=== PATIENT | female | born 1975 | race Caucasian/White ===

== ENCOUNTER 2022-07-01 09:49 | Emergency (ER) | payer SELFPAY ==
[2022-07-01 10:02] VITALS: BMI 29.0
[2022-07-01 10:05] VITALS: BP 117/71; PULSE 70; RESP 18; TEMP 36.2; O2SAT 100
--- NOTE | 2022-07-01 10:43 | ED_ITS ---
HPI - Extremity Problem General: Chief complaint: Extremity Injury, Lower Stated complaint: Right hip pain Time Seen by Provider: 07/01/22 10:20 Source: patient Mode of arrival: ambulatory History of Present Illness: 47-year-old female presents to the emergency room complaining of right hip pain radiating down the anterior part of her leg. No fall no triggering episode or injury. No trauma. She does not have any fecal incontinence or urinary retention. She has intermittently had back pain in the past pain is better when she lays down worse when she bears weight. MD Complaint: extremity pain Onset (ago): day(s) (1) Pain Consistency: constant Location: right Quality: burning and sharp Radiation: distal Relieving factors: other (Supine) Exacerbating factors: weight bearing and walking Associated symptoms: Deny arthralgias, chest pain, fever(s), myalgias, rash or short of breath Review of Systems Const: Denies: fever(s), chills, fatigue or malaise ENMT: Denies: throat pain, ear or mastoid pain, nasal discharge or nasal congestion Card: Denies: chest pain, palpitations, irregular heart rhythm, edema or swelling of feet/ankles Resp: Denies: dyspnea, productive cough or non-productive cough GI: Denies: abdominal pain, nausea, vomiting, hematemesis, coffee ground emesis, diarrhea, constipation, bloating, hematochezia or melena : Denies: flank pain, difficulty voiding, dysuria, urinary frequency or urinary urgency Skin/Breast: Denies: rash [facility] ED PFSH: Medical History (Updated 07/02/22 @ 13:52 by Yrn Tierney DO) No pertinent past medical history Surgical History (Updated 07/02/22 @ 13:52 by Yrn Tierney DO) No pertinent past surgical history Female Reproductive History: Date of last menstrual period: 06/20/22 Physical Exam Const: COMMON NORMALS: no acute distress GENERAL APPEARANCE: cooperative and comfortable ORIENTATION/CONSCIOUSNESS: Yes awake, Yes oriented to person, Yes oriented to place and Yes oriented to time HENMT: COMMON NORMALS: normocephalic, atraumatic and hearing grossly normal bilaterally HEAD & SCALP: normocephalic and atraumatic Resp: COMMON NORMALS: normal respiratory effort, No retractions, No use of accessory muscles and clear to auscultation bilaterally AUSCULTATION: clear to auscultation bilaterally Cardio: COMMON NORMALS: regular rate, regular rhythm and No murmurs present (Cardio) RATE: regular rate RHYTHM: regular rhythm GI: COMMON NORMALS: Soft to palpation and No hepatosplenomegaly present AUSCULTATION: Yes normoactive bowel sounds PALPATION: Yes Soft to palpation, No Tenderness to palpation present (GI), No Guarding due to palpation present (GI) and Yes No hepatosplenomegaly present Extremity: COMMON NORMALS: normal to inspection, capillary refill normal, no clubbing, cyanosis or edema, no calf tenderness and no pedal edema Neuro: SENSORIUM/ORIENTATION: Yes oriented to person, Yes oriented to place and Yes oriented to time MOTOR EXAM: 5/5 motor strength present throughout (Lower extremities) DEEP TENDON REFLEXES: Right patellar reflex intensity grade: 2+, Left patellar reflex intensity grade: 2+, Right ankle reflex intensity grade: 1+ and Left ankle reflex intensity grade: 1+ OTHER: Straight leg raise on the right leg Skin: COMMON NORMALS: no rashes or lesions noted GENERAL SKIN EXAM: no rashes or lesions noted Course Vital Signs: Vital signs: Vital Signs Temperature 97.2 F L 07/01/22 10:05 Pulse Rate 70 07/01/22 10:05 Respiratory Rate 14 07/01/22 10:53 Blood Pressure 117/71 07/01/22 10:05 Pulse Oximetry 96 07/01/22 10:53 Oxygen Delivery Me thod 07/01/22 10:05 MDM - Extremity (Nontraumatic) Medical Decision Making Patient has radicular symptoms in the right leg. She is given steroids anti- inflammatories and muscle relaxer here discharged home on same steroid taper and pain medications and diclofenac. Follow-up with primary care doctor if not improving with conservative measures and may need further evaluation Discharge Plan Discharge Patient Disposition: Home Clinical Impression: Sciatica Condition: Stable Prescriptions: New hydrocodone-acetaminophen 5-325 mg tablet 1 tab PO Q6H PRN (Reason: pain) Qty: 10 0RF prednisone 20 mg tablet 20 mg PO TID Qty: 15 0RF Rx Instructions: 1 p.o. 3 times daily x3 days, 1 p.o. twice daily x2 days, 1 p.o. 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
[2022-07-01 10:53] VITALS: RESP 14; O2SAT 96
[2022-07-01] MEDS: ketorolac 30 mg/mL INJ 60 MG IM (10:53)
[2022-07-01] MEDS: orphenadrine 30 mg/mL Inj 2 mL 60 MG IM (10:53)
[2022-07-01] MEDS: morphine 4 mg/mL SDV 1 mL IM (10:53)
== END 2022-07-01 11:03 | disposition home or self-care (01) ==
PROVIDERS: Emergency Provider Family Medicine
DX: M54.31 Sciatica, right side (principal)
CPT/HCPCS: 96372; 99284; J1885; J2270; J2360; J2930

== ENCOUNTER 2023-12-16 09:49 | Emergency (ER) | payer SELFPAY ==
[2023-12-16 09:53] VITALS: BP 121/82; PULSE 88; RESP 16; TEMP 37.1; O2SAT 100; BMI 29.7
--- NOTE | 2023-12-16 10:43 | W.ED.BACK ---
HPI - Back Pain/Injury General: Chief Complaint: Back Pain/Injury Stated Complaint: back pain Time Seen by Provider: 12/16/23 10:22 Source: patient and family Mode of arrival: ambulatory Limitations: no limitations History of Present Illness: This patient presents to the emergency department because of low back pain. She states she was working cleaning up around the house and spends considerable time bending over picking up small toys etc. that but nothing heavy. She states when she eventually completed that and raise back up she felt pain in her lower back and has continued to be painful in that region. She states she is not fallen. She states the pain does not radiate it is remained in her lower back. She has had no weakness of her lower extremities. She has not had no numbness. No perineal numbness. No loss of bowel or bladder control. She states she occasionally has back pain. She has had no history of falls or serious back injury. No back surgeries. She has not had fevers, is not immunocompromise, does not use IV drugs. He states the pain is uncomfortable she has tried nonsteroidal patch at home. MD elicited complaint: back pain Location: lumbar spine Radiation: none Exacerbating factors: movement Context: bending Associated symptoms: Reports no associated symptoms; Deny abdominal pain, chills, dysuria, fever(s), nausea, syncope or vomiting Review of Systems Const: Denies: fever(s) or chills ENMT: Denies: throat pain or odynophagia Card: Denies: chest pain, palpitations, syncope or pre-syncope Resp: Denies: productive cough or non-productive cough GI: Denies: abdominal pain, nausea or vomiting : Denies: flank pain, difficulty voiding, dysuria or urinary frequency Musc: Reports: back pain Skin/Breast: Denies: rash Neuro: Denies: numbness in extremities or weakness in extremities PFS ED PFSH: Medical History No pertinent past medical history Surgical History No pertinent past surgical history Female Reproductive History: Date of last menstrual period: 12/08/23 Physical Exam Narrative: EXAM NARRATIVE: Patient is alert answers questions appropriately. She moves rather stiffly but has ability to move unaided. Const: COMMON NORMALS: no acute distress, average body habitus, patient oriented x3 and alert GENERAL APPEARANCE: cooperative HENMT: COMMON NORMALS: normocephalic and Normal nasal mucous membranes and turbinates present HEAD & SCALP: normocephalic NOSE: Normal nasal mucous membranes and turbinates present Eye: COMMON NORMALS: Equal, round and reactive pupils present and EOMs intact bilaterally PUPIL: Yes Equal, round and reactive pupils present Neck/C-Spine: COMMON NORMALS: full ROM and no lymphadenopathy CERVICAL SPINE: Yes cervical ROM normal Resp: COMMON NORMALS: normal respiratory effort and No use of accessory muscles EFFORT & INSPECTION: Yes able to speak in complete sentences Cardio: COMMON NORMALS: regular rate RATE: regular rate GI: COMMON NORMALS: Normal to inspection, nondistended, normoactive bowel sounds present and Soft to palpation PALPATION: Yes Soft to palpation Back/Pelvis: THORACIC SPINE/UPPER BACK: Yes normal to inspection, Yes thoracic ROM normal, No paraspinal muscle tenderness and No paraspinal muscle spasm LUMBAR SPINE/LOWER BACK: Yes pain with ROM (Flexion past approximately 15 degrees, extension to normal anatomic positio), Yes paraspinal muscle tenderness and Yes paraspinal muscle spasm PELVIS: Yes no pain with anterior-posterior compression and Yes no pain with lateral compression SACROILIAC JOINTS: Yes SI joints normal OTHER: She has intact motor function to both lower extremities. There is no sensory deficits. She does have restriction to straight leg raising by spasm and subjective discomfort. BACK IMAGE (FEMALE): 1. Area of tenderness no skin changes ecchymosis etc. Extremity: COMMON NORMALS: normal to inspection, full ROM, no calf tenderness and no pedal edema Neuro: COMMON NORMALS: patient oriented x3, moves all extremities, no focal motor deficits, no sensory deficits noted and deep tendon reflexes 2+ bilaterally SENSORIUM/ORIENTATION: Yes alert Psych: COMMON NORMALS: mental status grossly normal Skin: COMMON NORMALS: no rashes or lesions noted GENERAL SKIN EXAM: no rashes or lesions noted Course Vital Signs: Vital signs: Vital Signs Temperature 98.7 F 12/16/23 11:35 Pulse Rate 92 12/16/23 11:35 Respiratory Rate 17 12/16/23 11:35 Blood Pressure 123/81 12/16/23 11:35 Pulse Oximetry 100 12/16/23 11:35 Oxygen Delivery Me thod Room Air 12/16/23 09:53 MDM - Back Pain/Injury Medical Decision Making Patient with lumbar low back pain of acute onset with bending. No trauma or falls. No red flag symptoms or contributing history that would suggest a worrisome etiology of low back pain. Clinical examination revealed paravertebral spasm and tenderness over the bilateral regions of the lumbar spine. She had restriction to movement as well as subjective worsening symptoms with straight leg raising but no neurologic deficits in terms of any motor or sensory loss. Consistent with acute low back strain with associated spasm likely due to prolonged positioning and twisting and turning in a bent position. No indication for imaging given the lack of trauma, the short duration of symptoms and the lack of clinical findings. I discussed expected course plan of care and most specifically reviewed red flag symptoms to prompt return to the emergency department. Both she and her son expressed understanding. No radiology studies performed this visit Discharge Plan Discharge Patient Disposition: Home Clinical Impression: Low back strain Qualifiers: Encounter type: initial encounter Qualified Code(s): S39.012A - Strain of muscle, fascia and tendon of lower back, initial encounter Condition: Stable Prescriptions: New Valium 5 mg tablet 5 mg PO DAILY PRN (Reason: muscle spasm) Qty: 5 0RF No Action hydrocodone-acetaminophen 5-325 mg tablet 1 tab PO Q6H PRN (Reason: pain) Qty: 10 0RF prednisone 20 mg tablet 20 mg PO TID Qty: 15 0RF Rx Instructions: 1 p.o. 3 times daily x3 days, 1 p.o. twice daily x2 days, 1 p.o. daily x2 days diclofenac sodium 75 mg tablet,delayed release (DR/EC) 75 mg PO Q12H PRN (Reason: pain) Qty: 20 0RF tizanidine 4 mg tablet 4 mg PO Q8H PRN (Reason: muscle spasticity) Qty: 20 0RF Discharge Orders: Discharge ED (Routine); Ordered 12/16/23 Ordered By: David Goddard Discharge Diet: Usual diet Discharge Activity: Increase activity as tolerated Patient Instructions: Opioid Safety, Pain Management Activity Restrictions/Additional Instructions: As we discussed while you are in the emergency department you have findings which suggest a simple low back strain and not a serious cause of your symptoms. We have prescribed a muscle relaxant to use at night for the next several nights to help with your muscle spasm. We also recommend buying Lidoderm or lidocaine patches and apply them to your skin of your low back once daily for the next 5 days to help with your symptoms. You may also use ibuprofen or Aleve to help with your pain. We also recommend using an ice pack to the low back for 10 to 15 minutes 3-4 times daily to help with your pain. If your pain persists for more than 3 to 4 days or you develop weakness numbness difficulty controlling her bowels and bladder or any other concerning symptoms return to the emergency department immediately for reevaluation. 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
[2023-12-16] MEDS: diazePAM 5 mg Tablet PO (11:07)
[2023-12-16] MEDS: lidocaine 5% Patch 1 PATCH TOPICAL (11:07)
[2023-12-16 11:35] VITALS: BP 123/81; PULSE 92; RESP 17; TEMP 37.1; O2SAT 100
== END 2023-12-16 11:36 | disposition home or self-care (01) ==
PROVIDERS: Emergency Provider Emergency Medicine
DX: S39.012A Strain of muscle, fascia and tendon of lower back, initial encounter (principal); X50.1XXA Overexertion from prolonged static or awkward postures, initial encounter
CPT/HCPCS: 99283

== ENCOUNTER 2025-05-08 09:18 | Emergency (ER) | payer SELFPAY ==
[2025-05-08 09:26] VITALS: BP 135/77; PULSE 74; RESP 16; TEMP 36.8; O2SAT 99; BMI 29.7
[2025-05-08 10:21] LABS: Hematocrit 48.8 % (36-47); Hemoglobin 16.30 g/dL (11.27-16.99); Mean Corpuscular HGB Conc 33.4 g/dL (30-55); Mean Corpuscular Hemoglobin 30.4 pg (27-33); Mean Corpuscular Volume 91.0 fl (85-98); Nucleated Red Blood Cells % 0 %; Platelet Count 167 10^3/cmm (157-399); Red Blood Count 5.36 10^6/uL (3.85-5.65); White Blood Count 11.59 10^3/uL (3.29-11.43)
[2025-05-08 10:21] LABS: Glucose Urine UA Negative (Normal); Nitrate Urine Negative (Negative); Specific Gravity, Urine 1.026 (1.005-1.030)
[2025-05-08 10:26] LABS: Add Urine Microscopic? YES
--- NOTE | 2025-05-08 10:28 | ED_ITS ---
HPI - Abdominal Pain 2 General: Chief Complaint: Abdominal Pain Stated Complaint: ABD pain Time Seen by Provider: 05/08/25 09:20 History of Present Illness: 50-year-old female presents emergency ro om complaining of lower abdominal pain for last several days suprapubic to the right lower quadrant region. Has been very nauseous no vomiting no hematochezia or melena no fever sweats or chills no dysuria urgency or frequency or hematuria Associated Symptoms: Denies chills, dysuria and fever(s) Related Data Previous Rx's ?Medication ?Instructions ?Recorded diclofenac sodium 75 mg 75 mg PO Q12H PRN pain #20 t abs 07/01/22 tablet,delayed release hydrocodone 5 mg-acetaminophen 325 1 tab PO Q6H PRN pa in #10 tabs 07/01/22 mg tablet prednisone 20 mg tablet 20 mg PO TID #15 tabs tizanidine 4 mg tablet 4 mg PO Q8H PRN muscle spast icity 07/01/22 #20 tabs diazepam 5 mg tablet (Valium) 5 mg PO DAILY PRN muscle spasm #5 12/16/23 tabs amoxicillin 875 mg-potassium 1 tab PO BID #14 tabs clavulanate 125 mg tablet hydrocodone 5 mg-acetaminophen 325 1 tab PO Q6H PRN pa in #10 tabs 05/08/25 mg tablet promethazine 25 mg tablet 25 mg PO Q6H PRN nausea and 05/08/25 vomiting #20 tabs Allergies Allergy/AdvReac Type Severity Reaction Status Date / Time Latex, Natural Rubber Allergy ALGY-Alvaroiste Verified 12/16/23 09:55 r Review of Systems 2 Const: Denies: fever(s) or chills Card: Denies: chest pain Resp: Denies: dyspnea GI: Denies: abdominal pain : Denies: dysuria, urinary frequency or urinary urgency Musc: Denies: neck pain or back pain Skin/Breast: Denies: rash PFSH ED 2 PFSH: Medical History No pertinent past medical history Surgical History No pertinent past surgical history Physical Exam 2 Const: GENERAL APPEARANCE: cooperative ORIENTATION/CONSCIOUSNESS: Yes awake, Yes oriented to person, Yes oriented to place and Yes oriented to time HENMT: COMMON NORMALS: normocephalic, atraumatic and hearing grossly normal bilaterally HEAD & SCALP: normocephalic and atraumatic Resp: COMMON NORMALS: normal respiratory effort, No retractions, No use of accessory muscles and clear to auscultation bilaterally AUSCULTATION: clear to auscultation bilaterally Cardio: COMMON NORMALS: regular rate, regular rhythm and No murmurs present (Cardio) RATE: regular rate RHYTHM: regular rhythm GI: COMMON NORMALS: Soft to palpation and No hepatosplenomegaly present A USCULTATION: Yes normoactive bowel sounds PALPATION: Yes Soft to palpation, No Tenderness to palpation present (GI), No Guarding due to palpation present (GI) and Yes No hepatosplenomegaly present Extremity: COMMON NORMALS: normal to inspection, capillary refill normal, no clubbing, cyanosis or edema, no calf tenderness and no pedal edema Neuro: SENSORIUM/ORIENTATION: Yes oriented to person, Yes oriented to place and Yes oriented to time Skin: COMMON NORMALS: no rashes or lesions noted GENERAL SKIN EXAM: no rashes or lesions noted Course 2 Vital Signs: Vital signs: Vital Signs Temperature 98.2 F 05/08/25 09:26 Pulse Rate 75 05/08/25 12:08 Respiratory Rate 16 05/08/25 09:26 Blood Pressure 108/69 05/08/25 12:08 Pulse Oximetry 100 05/08/25 12:08 Oxygen Delivery Me thod Room Air 05/08/25 09:26 MDM - Abdominal Pain Medical Decision Making CT shows acute diverticulitis mild leukocytosis. Discharge patient home on Augmentin 875 twice daily for 6 7 days also discharged home with promethazine and hydrocodone for pain follow-up with primary care should have a colonoscopy at sometime in the future. Medical Records I reviewed the patient's medical records. Lab Data I reviewed the patient's lab results. 05/08/25 10:07 05/08/25 10:07 Labs/Radiology: Radiology Impressions Abdomen/Pelvis CT 05/08/25 10:32 IMPRESSION: 1. Extensive sigmoid and colonic diverticulosis. Inflammatory stranding and edema with a small amount of fluid in the LEFT pericolic gutter extending into the sigmoid colon compatible with acute diverticulitis. 2. No drainable abscess or fluid collection. 3. Evidence of gastritis and duodenitis. 4. Normal retrocecal appendix 5. No other acute findings. 6. Notified Yrn Tierney DO at 05/08/2025 11:56 AM. Laboratory Results WBC 11.59 10^3/uL (3.29-11.43) H 05/08/25 10:07 RBC 5.36 10^6/uL (3.85-5.65) 05/08/25 10:07 Hgb 16.30 g/dL (11.27-16.99) 05/08/25 10:07 Hct 48.8 % (36-47) H 05/08/25 10:07 MCV 91.0 fl (85-98) 05/08/25 10:07 MCH 30.4 pg (27-33) 05/08/25 10:07 MCHC 33.4 g/dL (30-55) 05/08/25 10:07 RDW 13.4 % (12.1-15.1) 05/08/25 10:07 Plt Count 167 10^3/cmm (157-399) 05/08/25 10:07 MPV 12.8 fL (7.4-10.4) H 05/08/25 10:07 Neut % (Auto) 73.1 % 05/08/25 10:07 Lymph % (Auto) 15.1 % 05/08/25 10:07 [place] % (Auto) 8.1 % 05/08/25 10:07 Eos % (Auto) 3.1 % 05/08/25 10:07 Baso % (Auto) 0.3 % 05/08/25 10:07 Neut # (Auto) 8.46 10^3/uL (1.8-7.7) H 05/08/25 10:07 Lymph # (Auto) 1.8 10^3/uL (0.8-4.8) 05/08/25 10:07 [place] # (Auto) 0.9 10^3/uL (0.2-0.9) 05/08/25 10:07 Eos # (Auto) 0.4 10^3/uL (0.0-0.8) 05/08/25 10:07 Baso # (Auto) 0.0 10^3/uL (0.0-0.1) 05/08/25 10:07 Nucleated RBC % (auto) 0 % 05/08/25 10:07 Nucleated RBCs # 0.0 /100WBC 05/08/25 10:07 Sodium 136 mmol/L (136-145) 05/08/25 10:07 Potassium 3.8 mmol/L (3.5-5.1) 05/08/25 10:07 Chloride 96 mmol/L (98-107) L 05/08/25 10:07 Carbon Dioxide 27 mmol/L (22-29) 05/08/25 10:07 Anion Gap 16.8 (5-19) 05/08/25 10:07 BUN 16 mg/dL (6-20) 05/08/25 10:07 Creatinine 0.8 mg/dL (0.5-0.9) 05/08/25 10:07 GFR Calculation 76.2 mL/min (90-130) L 05/08/25 10:07 Glucose 98 mg/dL (65-115) 05/08/25 10:07 Calculated Osmolality 283 mOsm/kg (285-295) L 05/08/25 10:07 Calcium 9.6 mg/dL (8.5-10.5) 05/08/25 10:07 Total Bilirubin 0.5 mg/dL (0.15-1.2) 05/08/25 10:07 AST 18 U/L (0-32) 05/08/25 10:07 ALT 17 U/L (0-33) 05/08/25 10:07 Alkaline Phosphatase 100 U/L (35-105) 05/08/25 10:07 Total Protein 8.2 g/dL (6.6-8.7) 05/08/25 10:07 Albumin 4.2 g/dL (3.5-5.2) 05/08/25 10:07 Globulin 4.0 g/dL (1.3-4.6) 05/08/25 10:07 Lipase 30 U/L (13-60) 05/08/25 10:07 HCG, Qual Negative (Negative) 05/08/25 10:07 Urine Color Dark yellow (Yellow) A 05/08/25 10:01 Urine Appearance Clear (CLEAR) 05/08/25 10:01 Urine pH 5.5 (5-7) 05/08/25 10:01 Ur Specific [place] 1.026 (1.005-1.030) 05/08/25 10:01 Urine Protein 1+ (Negative) A 05/08/25 10:01 Urine Glucose (UA) Negative (Normal) 05/08/25 10:01 Urine Ketones Trace (Negative) 05/08/25 10:01 Urine Blood Negative (Negative) 05/08/25 10:01 Urine Nitrate Negative (Negative) 05/08/25 10:01 Urine Bilirubin 1+ (Negative) H 05/08/25 10:01 Urine Urobilinogen 1.0 mg/dL (Negative) 05/08/25 10:01 Ur Leukocyte Esterase Trace (Negative) A 05/08/25 10:01 Urine RBC 0-2 /hpf (0-2) 05/08/25 10:01 Urine WBC 0-5 /hpf (0-5) 05/08/25 10:01 Ur Squamous Epith Cells 0-5 /hpf (0-5) 05/08/25 10:01 Amorphous Sediment Not Reportable 05/08/25 10:01 Urine Bacteria 1+ /hpf (NONE) H 05/08/25 10:01 Hyaline Casts 1.21 /lpf 05/08/25 10:01 All radiology interpretation(s) finalized by discharge Discharge Plan Discharge Patient Disposition: Home Clinical Impression: Diverticulitis Condition: Stable Prescriptions: New amoxicillin-pot clavulanate 875-125 mg tablet 1 tab PO BID Qty: 14 0RF hydrocodone-acetaminophen 5-325 mg tablet 1 tab PO Q6H PRN (Reason: pain) Qty: 10 0RF promethazine 25 mg tablet 25 mg PO Q6H PRN (Reason: nausea and vomiting) Qty: 20 0RF No Action hydrocodone-acetaminophen 5-325 mg tablet 1 tab PO Q6H PRN (Reason: pain) Qty: 10 0RF prednisone 20 mg tablet 20 mg PO TID Qty: 15 0RF Rx Instructions: 1 p.o. 3 times daily x3 days, 1 p.o. twice daily x2 days, 1 p.o. daily x2 days diclofenac sodium 75 mg tablet,delayed release (DR/EC) 75 mg PO Q12H PRN (Reason: pain) Qty: 20 0RF tizanidine 4 mg tablet 4 mg PO Q8H PRN (Reason: muscle spasticity) Qty: 20 0RF Valium 5 mg tablet 5 mg PO DAILY PRN (Reason: muscle spasm) Qty: 5 0RF Discharge Orders: Discharge ED (Routine); Ordered 05/08/25 Ordered By: Yrn Tierney Discharge Diet: As Directed Discharge Activity: Increase activity as tolerated Patient Instructions: Diverticulitis (ED), Opioid Safety, Pain Management, Patient Portal & Leena Instructions Activity Restrictions/Additional Instructions: [facility]. It is very important that you follow up as instructed or that you return to the Emergency Department should you have concerns or if your condition changes or worsens in any way. You were seen in the emergency room with complaints of abdominal pain CT shows you have diverticulitis. Recommend clear liquid diet for the next 24 to 48 hours and advance as tolerated. Started on oral antibiotics 1 pill twice a day for 7 days also given pain medications and nausea medication to use as needed Print Language: Tongan Coding Level of Care Code ED Hand Drawer In for Pete Matias
[2025-05-08 10:31] LABS: HCG, Serum Qual Negative (Negative)
--- NOTE | 2025-05-08 10:32 | CT_ITS ---
WS: [id number] CT ABDOMEN PELVIS TECHNIQUE: Contrast-enhanced CT of the abdomen and pelvis with coronal and sagittal reformatted images. CLINICAL INFORMATION: abd pain COMPARISON: None. DLP: 689.[address] scans at [facility] use at least one of these dose optimization techniques: automated exposure control; mA and/or kV adjustment per patient size (includes targeted exams where dose is matched to clinical indication); or iterative reconstruction. FINDINGS: Hepatomegaly. Fatty liver. Diffuse thickening of the sigmoid colon with inflammatory stranding and induration in the LEFT lower quadrant and a small mild fluid in the paracolic gutter compatible with acute diverticulitis. Extensive sigmoid and colonic diverticuli. No drainable abscess or fluid collection. Normal retrocecal appendix is decompressed with air in the tip of the appendix. Normal renal parenchymal enhancement. No hydronephrosis. Adrenal glands are normal. Tiny esophageal hiatal hernia. Gastric rugal thickening compatible with gastritis. Normal caliber abdominal aorta. Celiac and SMA are patent. Shotty periaortic lymph nodes. Normal gallbladder. Normal portal vein and splenic vein. Heterogeneous enhancing uterus. Multi follicular ovaries bilaterally. Dominant LEFT follicle measuring 10mm. CT/CT abdomen pelvis w con* [id number] IMPRESSION: 1. Extensive sigmoid and colonic diverticulosis. Inflammatory stranding and ed bianca with a small amount of fluid in the LEFT pericolic gutter extending into th e sigmoid colon compatible with acute diverticulitis. 2. No drainable abscess or fluid collection. 3. Evidence of gastritis and duodenitis. 4. Normal retrocecal appendix 5. No other acute findings. 6. Notified Yrn Tierney DO at 05/08/2025 11:56 AM.
[2025-05-08 10:35] LABS: Alanine Aminotransferase 17 U/L (0-33); Albumin Level 4.2 g/dL (3.5-5.2); Alkaline Phosphatase 100 U/L (35-105); Anion Gap 16.8 (5-19); Aspartate Amino Transferase 18 U/L (0-32); Blood Urea Nitrogen 16 mg/dL (6-20); Calcium 9.6 mg/dL (8.5-10.5); Carbon Dioxide 27 mmol/L (22-29); Chloride 96 mmol/L (98-107); Creatinine Clr Calc Pharmacy 95.9264; Globulin 4.0 g/dL (1.3-4.6); Glucose 98 mg/dL (65-115); Lipase 30 U/L (13-60); Osmolality Calculated 283 mOsm/kg (285-295); Potassium 3.8 mmol/L (3.5-5.1); Sodium 136 mmol/L (136-145); Total Protein 8.2 g/dL (6.6-8.7)
[2025-05-08] MEDS: iohexol 350 mg/mL 500 mL Btl (per mL) IV (10:57)
[2025-05-08 12:08] VITALS: BP 108/69; PULSE 75; O2SAT 100
--- OUTSIDE RECORDS SUMMARY | 2025-05-09 04:06 | XMS_ITS | Clinical Summary ---
Author Organization [facility] Lila Lyons [address] Address [address] [place] [address] Care Team Providers Care Human Resources Admin Name Role Phone Unavailable Primary Care Provider Unavailabl e Allergies Active Allergy Reactions Criticality Noted Date Comments Latex Rash Low 07/03/2012 Medications ibuprofen (MOTRIN) 800 mg Oral TabIndications: Knee pain Take 1 Tab by mouth every 8 hours as needed for Pain. 30 Tab 0 06/04/2009 Active varenicline (CHANTIX) 0.5 (11)-1 (42) mg Oral tablets in a dose pack Take as directed on package. 1 Package 0 07/03/2012 Active oxyCODONE-aceta minophen (PERCOCET) 5-325 mg Oral tablet Take 1 Tab by mouth every 4 hours as needed for Pain. 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 Immunizations Immunization Administration Dates Next Due Dt Dtp Dtap Vaccine 01/06/2005 Family History Medical History Relation Name Comments Hypertension Brother Diabetes Father Hypertension Father Cancer Maternal Grandfather esophag eal Heart Disease Maternal Grandfather Cancer Paternal Grandfather pancrea tic cancer Diabetes Paternal Grandfather Breast Cancer Paternal Grandmother Diabetes Paternal Grandmother Hypertension Sister Relation Name Status Comments Brother Alive Father Alive Maternal Grandfather Alive Maternal Grandmother Alive Mother Alive Paternal Grandfather Paternal Grandmother Alive Sister Alive Son 1 Alive Son 2 Alive Son 3 Alive Social History Tobacco Use Types Packs/Day Years Used Date Smoking Tobacco: Former Cigarettes 0 10/23/1992 - 10/23/2012 Smokeless Tobacco: Never Alcohol Use Standard Drinks/Week Comments Yes 0 (1 standard drink = 0.6 oz pur e alcohol) rare Comments No Sex and Gender Information Value Date Recorded Sex Assigned at Not on file 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 Gender Identity Not on file Sexual Orientation Not on file Occupation Industry Job Start Date Job End Date Not on file Not on file Not on file Not on file Last Filed Vital Signs Vital Sign Reading Time Taken Comments Blood Pressure 116/76 01/03/2013 9:55 AM CDT Pulse 53 11/07/2012 12:25 PM MOCCASIN SEWER Temperature 36.3 C (97.4 F) 11/07/2012 11:25 AM MOCCASIN SEWER Respiratory Rate 18 11/07/2012 12:25 PM MOCCASIN SEWER Oxygen Saturation 93% 11/07/2012 12:25 PM MOCCASIN SEWER Inhaled Oxygen Concentration - - Weight 81.6 kg (180 lb) 01/03/2013 9:55 AM CDT Height 170.2 cm (5' 7 ) 01/03/2013 9:55 AM CDT Body Mass Index 28.19 01/03/2013 9:55 AM CDT Plan of Treatment Health Maintenance Due Date Last Done Comments HEPATITIS B VACCINES (1 of 3 - 19+ 3-dose series) 06/1995 HPV/Cotest (21-29) 01/15/1997 CERVICAL CANCER SCREENING 01/15/2006 HPV/Cotest (30-65) 01/15/2006 PAP SMEAR 01/15/2006 DTAP/TDAP/TD VACCINES (2 - Tdap) 01/06/2015 01/07/20 05 BREAST CANCER SCREENING 2016 COLORECTAL SCREENING 01/15/2021 Colorectal Cancer Screening 01/15/2021 FIT-DNA Q 3 years 01/15/2021 FIT/FOBT Q 1 year 01/15/2021 Flex Sig/CT Colonography Q 5 years 01/15/2021 INFLUENZA VACCINE (#1) 2025 Medical Devices Implanted Type Area Brine Tank Separator Operator Device Identifier Shelf Expiration Date Model / Serial / Lot Mammary Silic Smth Rnd [id number] - [id number] Implanted:Qty: 1 on 11/07/2012 at [facility] Mammary Right: Breast [employer] LINDA 12/07/2014 [id number] / [id number] / [id number] Mammary Silic th Rnd [id number] - [id number] Implanted:Qty: 1 on 11/07/2012 at [facility] Mammary Left: Breast [employer] LINDA 01/07/2015 [id number] / [id number] / [id number] Insurance [place]ICAID [place] CABEZAS Advance Directives For more information, please contact: [phone] * Full Code (Latest Code Status on File) Date Activated Date Inactivated Comments 11/07/2012 8:55 AM 11/08/2012 2:02 AM * Full Code Date Activated Date Inactivated Comments 11/07/2012 8:45 AM 11/07/2012 8:55 AM
--- OUTSIDE RECORDS SUMMARY | 2025-05-09 04:06 | XMS_ITS | Encounter Summary ---
Author Organization [facility] Address [address] [place] [address] Care Team Providers Care Contractor General Engineering Name Role Phone Unavailable Primary Care Provider Unavailabl e Encounter Details Date Type Department Care Team (Latest Contact Info) Description 08/28/2007 Outpatient Historical [facility] Occupational Medicine [address] [place] [address] Joe Servin, PA NO ADDRESS ON FILE Routine Medical Exam (Primary Dx) Social History Tobacco Use Types Packs/Day Years Used Date Smoking Tobacco: Never Assessed Comments Unknown Sex and Gender Information Value Date Recorded Sex Assigned at Not on file 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
== END 2025-05-08 12:09 | disposition home or self-care (01) ==
PROVIDERS: Emergency Provider Family Medicine
DX: K57.92 Diverticulitis of intestine, part unspecified, without perforation or abscess without bleeding (principal)
CPT/HCPCS: 36415; 74177; 80053; 81001; 83690; 84703; 85025; 99285